=== PATIENT | female | born 1950 | race Hispanic/Latino ===

== ENCOUNTER → 2017-12-12 | Day surgery (SDC) | payer BC, MEDICARE ==
[2017-12-08 16:17] LABS: BASOPHILS # (AUTO) 0.1 (0.0-0.1); BASOPHILS % 0.6 % (0.0-1.0); EOSINOPHILS # (AUTO) 0.6 (0.0-0.4); EOSINOPHILS % 6.9 % (0.0-6.0); HEMATOCRIT 39.4 % (34.2-44.1); HEMOGLOBIN 13.7 g/dL (12.0-16.0); LYMPHOCYTES # (AUTO) 3.9 (1.0-3.2); LYMPHOCYTES % 49.2 % (18.0-39.1); MEAN CORPUSCULAR HEMOGLOBIN 35.3 pg (28-32); MEAN CORPUSCULAR HGB CONC 34.8 g/dL (31-35); MEAN CORPUSCULAR VOLUME 101.5 fL (81-99); MONOCYTES # (AUTO) 0.8 (0.2-0.8); MONOCYTES % 9.5 % (4.4-11.3); NEUTROPHILS # (AUTO) 2.7 (2.1-6.9); NEUTROPHILS % 33.5 % (38.7-80.0); PLATELET COUNT 109 x10e3/uL (140-360); RED BLOOD COUNT 3.88 x10e6/uL (3.6-5.1); RED CELL DISTRIBUTION WIDTH 13.2 % (11.7-14.4)
[2017-12-08 16:29] LABS: INR 1.32; PROTHROMBIN TIME 15.4 seconds (11.9-14.5)
[2017-12-08 16:30] LABS: PARTIAL THROMBOPLASTIN TIME 34.5 seconds (23.8-35.5)
[2017-12-08 16:39] LABS: ALANINE AMINOTRANSFERASE 36 IU/L (0-55); ALBUMIN 3.3 g/dL (3.5-5.0); ALBUMIN/GLOBULIN RATIO 0.9 (0.8-2.0); ALKALINE PHOSPHATASE 133 IU/L (40-150); BLOOD UREA NITROGEN 9 mg/dL (7-26); BUN/CREATININE RATIO 12 (6-25); CALCIUM 9.3 mg/dL (8.4-10.2); CARBON DIOXIDE 23 mmol/L (22-29); CHLORIDE 105 mmol/L (98-107); CREATININE, SERUM 0.77 mg/dL (0.57-1.11); EST GLOMERULAR FILTRATION RATE > 60 ML/MIN (60-); GLUCOSE 83 mg/dL (74-118); SODIUM 136 mmol/L (136-145)
--- NOTE | 2017-12-08 17:12 | Diagnostic Imaging Report ---
PROCEDURE: Frontal and lateral views of the chest. COMPARISON: None. INDICATIONS: PREOP CXR. Left foot surgery. FINDINGS: Lines/tubes: None. Lungs: The lungs are well-inflated. Bilateral peribronchial cuffing. Pleura: There is no pleural effusion or pneumothorax. Heart and mediastinum: The heart and the mediastinum are normal. Bones: No acute bony abnormality. IMPRESSION: Bilateral peribronchial cuffing, likely viral etiology or reactive airway. No focal consolidative pneumonia. Dictated by: Jaxon Mesa M.D. on 12/08/2017 at 17:15 Electronically approved by: Jaxon Mesa M.D. on 12/08/2017 at 17:15
[~2017-12-12] MED LIST: ALLEGRA ALLERG180 MG PO; BUPIVACAINE HCL 0.5% INJ 30 ML VIAL INJ ONE; CEFAZOLIN SOD 2 GM/D5W 50ML 50 ML IV ONE; DEXAMETHASONE SOD PHOS INJ 4 MG/ML VIAL ONE; FENTANYL CITRATE/PF 100MCG/2 ML INJ ONE; HYDROMORPHONE 1MG/1ML INJ ONE; LIDOCAINE HCL 2% LOCAL INJ 5 ML SDV VIAL INJ ONE; MIDAZOLAM HCL 2 MG/2 ML VIAL ONE; NEOSTIGMINE 1 MG/ML 10ML VIAL ONE; ONDANSETRON HCL INJ 2 MG/ML VIAL ONE; ONE DAILY COMP1 EACH PO; PHENYLEPHRINE HCL 1% 10 MG/ML VIAL ONE; PROPOFOL IV EMULSION 10 MG/ML 20 ML VIAL ONE; PROPRANOLOL HCL10 MG PO; SEVOFLURANE INHAL SOLN 250 ML PEN BTL ONE
--- NOTE | 2017-12-14 07:42 | Operative Report ---
DATE OF PROCEDURE: December 12, 2017 PREOPERATIVE DIAGNOSES 1. Posterior tibial tendon rupture, left foot. 2. 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 POSTOPERATIVE DIAGNOSES 1. Posterior tibial tendon rupture, left foot. 2. 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 TITLE OF OPERATIONS: 1. Posterior tibial tendon repair with #2 FiberWire. 2. Fusion of the medial column, including the 1st metatarsal cuneiform joint, the 2nd tarsometatarsal joint, and the intermetatarsal joint between the base of the 1st metatarsal and 2nd metatarsal utilizing plate and screws. PROCEDURE IN DETAIL: The patient was taken to the operating room in a mildly state and placed on the operating table in the supine position. Following induction of general anesthetic, the left lower extremity was elevated to 60 degrees to exsanguinate before inflating the pneumatic thigh tourniquet to 350 mmHg to create hemostasis. The right lower extremity was placed upon the operating table prior to performing the following procedure. PROCEDURE #1: Fusion of the 1st metatarsal cuneiform joint and intermetatarsal cuneiform joint. A linear longitudinal incision was made overlying the dorsal aspect of the 1st and 2nd metatarsal at the area of the Lisfranc ligament. It was noted that there was a diastasis between the 1st and 2nd metatarsals. There was also severe degenerative joint disease at the base of the 1st and 2nd metatarsals at the metatarsal cuneiform joints. An osteotome and mallet as well as oscillating saw were used to remove and roughen the area between the 1st and 2nd metatarsal. A curette was used also to facilitate removal of all diacritic remnants of the Lisfranc ligament. That area having thus been prepared, a [id number]-pelauem 4 screw cannulated was advanced across the Lisfranc joint creating a fusion of the Lisfranc joint. The [id number] fusion was with a long screw from [employer]. This having been appropriately approximated, attention was directed to the dorsal aspect of the 1st and 2nd metatarsal cuneiform joints. They were both debrided with removal of all cartilage to create an in situ fusion. Curette was used to facilitate. The area was then reapproximated under fluoroscopy, and a U-plate with compression holes was used with both locking and nonlocking screws to facilitate the 1st and 2nd metatarsal cuneiform joint fusion with Lisfranc fusions. This having been accomplished, the area was irrigated with copious amounts of sterile saline solution. Deep closure was 3-0 Vicryl. Subcutaneous closure was 4-0 Vicryl and skin closure was 4-0 nylon. Attention was directed to the medial aspect of the navicular prominence where the ruptured posterior tibial tendon was noted after dissecting. That tendon had longitudinal ruptures and fraying. An incision to debride was performed. Approximately, 4 cm of the tenosynovitis and ruptured tendon were debrided. This was all repaired with a #2 FiberWire buried in the central core utilizing a continuous interlocking suture. This having been accomplished, the area was irrigated with copious amounts of sterile saline solution. Fluoroscopy images were obtained. Deep closure was 3-0 Vicryl. The capsular and peritenon closure was 4-0 Vicryl and 4-0 nylon on the skin. The areas of surgery were all blocked with 0.5 Marcaine. A human tissue allograft was used into intratendinous structure in order to facilitate healing. This was placed in the area of the Lisfranc ligament fusion as well. This having been accomplished, the appropriate mildly compressive dressings were applied. Posterior splint was applied. Release of the pneumatic thigh tourniquet showed a normal hyperemic flush to all digits of the left foot. The patient tolerated both anesthetic and procedure very well. Job#: [id number]
== END | disposition home or self-care (01) ==
LOC: OR 06:36
PROVIDERS: ATTEND Podiatrist Foot Surgery
DX: M66.872 Spontaneous rupture of other tendons, left ankle and foot (principal); M21.42 Flat foot [pes planus] (acquired), left foot; M24.275 Disorder of ligament, left foot; M19.072 Primary osteoarthritis, left ankle and foot; K74.60 Unspecified cirrhosis of liver; Z88.5 Allergy status to narcotic agent; Z88.8 Allergy status to other drugs, medicaments and biological substances; Z01.810 Encounter for preprocedural cardiovascular examination; Z01.812 Encounter for preprocedural laboratory examination; Z01.818 Encounter for other preprocedural examination; Z87.01 Personal history of pneumonia (recurrent)
CPT/HCPCS: 28200; 28730; 36415; 71046; 76001; 80053; 85025; 85610; 85730; 93005; C1713 ×6; J1100; J1170; J2001; J2250; J2370; J2405; J2710; Q4100

== ENCOUNTER 2021-09-22 12:06 | Emergency (ER) | payer MEDICARE ==
[~2021-09-22] VITALS: Ht 157.5 cm; Wt 77.1 kg
[~2021-09-22 12:06] MED LIST changes: -BUPIVACAINE HCL 0.5% INJ 30 ML VIAL INJ ONE; -CEFAZOLIN SOD 2 GM/D5W 50ML 50 ML IV ONE; -DEXAMETHASONE SOD PHOS INJ 4 MG/ML VIAL ONE; -FENTANYL CITRATE/PF 100MCG/2 ML INJ ONE; -HYDROMORPHONE 1MG/1ML INJ ONE; -LIDOCAINE HCL 2% LOCAL INJ 5 ML SDV VIAL INJ ONE; -MIDAZOLAM HCL 2 MG/2 ML VIAL ONE; -NEOSTIGMINE 1 MG/ML 10ML VIAL ONE; -ONDANSETRON HCL INJ 2 MG/ML VIAL ONE; -PHENYLEPHRINE HCL 1% 10 MG/ML VIAL ONE; -PROPOFOL IV EMULSION 10 MG/ML 20 ML VIAL ONE; -SEVOFLURANE INHAL SOLN 250 ML PEN BTL ONE
[2021-09-22] MEDS ORDERED: IBUPROFEN 400 MG TAB PO ONE (13:00)
[2021-09-22] MEDS ORDERED: ACETAMINOPHEN 325 MG TAB PO ONE (13:00)
[2021-09-22] MEDS ORDERED: ACETAMINOPHEN 325 MG TAB ONE (13:02)
[2021-09-22] MEDS ORDERED: IBUPROFEN 400 MG TAB ONE (13:02)
[2021-09-22] MEDS ORDERED: IBUPROFEN400 MG PO (14:53)
[2021-09-22] MEDS ORDERED: ULTRAM50 MG PO (14:53)
== END 2021-09-22 15:04 | disposition home or self-care (01) ==
LOC: FSED 12:12
DX: M79.672 Pain in left foot (principal); M25.572 Pain in left ankle and joints of left foot; R53.1 Weakness; R53.81 Other malaise; R05.9 Cough, unspecified
CPT/HCPCS: 99283